=== PATIENT | female | born 1975 | race Two or more races ===

== ENCOUNTER → 2016-10-15 | Outpatient (CLI) | payer OTHER ==
[~2016-10-15] VITALS: Ht 162.6 cm; Wt 82.1 kg
[~2016-10-15] MED LIST: LIDOCAINE 1% / SOD BICARB 8.4% 20 ML VIAL. IJ ONE; LIDOCAINE 2%/EPI 1:100,000 20 ML VIAL. IJ ONE
[2016-10-15 09:18] VITALS: BP 147/90
--- NOTE | 2016-10-16 15:26 | PATHOLOGY ---
PATHOLOGY REPORT * * * * * * * * FINAL DIAGNOSIS: Breast "right breast biopsy": - Infiltrating ductal carcinoma measuring 0.5 cm in greatest dimension. 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 The largest area measures approximately 1.0 cm in greatest dimension. - See comment. Specimen type: biopsy Tumor site: right breast Tumor quantitation: 0.5cm Histologic type: infiltrating ductal carcinoma Histologic grade: 2 Tubules, nuclei and mitoses: 3,2,1 LVSI: none Microcalcifications: present Markers: ordered Block: A1 COMMENT: This case is also reviewed by Dr. Lukasz Mckoy. Emelina Brunner at Dr. Mayo Eagle office was informed of the diagnosis on 10/16/2016 at 3pm. Predictive breast markers will be ordered on block A1 and when those are available, an additional report will follow. (SHARON:himanshu; d/t: 10/16/2016) REPORT ELECTRONICALLY SIGNED BY: Cesar Trinidad M.D. DATE/TIME: 10/16/2016 15:25 * * * * * * * * GROSS PATHOLOGY: Received in formalin labeled "Daren Mckeon, right breast," are multiple needle cores of yellow-ruiz fibrofatty tissue measuring 1.2 x 1.0 x 0.5 cm in aggregate dimensions. Also received is a plastic cassette containing multiple cores of yellow-ruiz fibrofatty tissue measuring 2.5 x 2.2 x 0.6 cm in aggregate dimensions. The tissue in the cassette is transferred to cassettes A1 and A2, and the remaining tissue is submitted in its entirety in cassette A3. The cold ischemic time is 14 minutes. The total formalin fixation time is 13 hours and 21 minutes. ([facility]; 10/15/16) INITIAL CPT CODE(S): A; 03936, 56547(4) Professional services performed by [facility] at [address] [address] Technical services performed by [facility] at [address] [place] [address], [address], [place] [address]. SPECIMEN(S) RECEIVED: A.Right breast biopsy CLINICAL HISTORY: Right breast calcifications/mass PATIENT: DAREN MCKEON Brady /AGE: 1103/17/1975 (Age: 41) PATIENT #: [id number] ALT CASE #: SPECIMEN COLLECTION DATE: 10/15/2016 SPECIMEN RECEIVED DATE: 10/15/2016 [facility] - [address] [place] [address] - PHONE: [phone] * * * END OF REPORT * * *
--- NOTE | 2016-10-17 09:25 | RAD ---
Stereotactic right breast biopsy, 10/15/2016: History: Microcalcifications The previous study demonstrated suspicious microcalcifications in the upper outer quadrant of the right breast. Under local anesthesia, aseptic conditions and stereotactic guidance the ESTmob biopsy instrument was passed into this area via a superior approach. We targeted the anterior aspect of this elongated grouping of microcalcifications. Multiple 9 gauge core samples were obtained. Specimen radiography demonstrated numerous targeted microcalcifications within the specimens. A biopsy marker was then deposited at the biopsy site. The biopsy instrument was removed and hemostasis obtained. Two-view postprocedural digital mammograms were then obtained on a separate mammographic unit, to document position of the biopsy marker. There are numerous residual microcalcifications at the biopsy site and extending posteriorly a distance of at least 3 cm. The patient tolerated the procedure well and left the department in good condition. The subsequent pathology report indicated the presence of infiltrating ductal carcinoma. This is considered to be a concordant finding. Note: The findings were given to personnel in Dr. Eagle's office at 9:22 AM on 10/17/2016.
== END | disposition home or self-care (01) ==
LOC: MAMMO 08:23
PROVIDERS: ATTEND Surgery
DX: R92.8 Other abnormal and inconclusive findings on diagnostic imaging of breast (principal); N63 Unspecified lump in breast
CPT/HCPCS: 19085; 77022; C1713; G0206; J3490; 88305; 88361; 77065

== ENCOUNTER 2016-11-17 07:08 | Observation (INO) | payer OTHER ==
[~2016-11-17] VITALS: Ht 162.6 cm; Wt 82.1 kg
[2016-11-17] VITALS (10 sets, daily range): BP systolic 105–134; BP diastolic 64–79
[2016-11-17] MEDS: IV DEXTROSE 5 %-0.45 % NACL 1,000 ML IV SCH ×2 (01:45→14:34)
[~2016-11-17 07:08] MED LIST changes: +ACET500T33 PO; +HYDROmorphone 2 MG/ML VIAL IV PRN; +IBUP-1227 PO; +IV RINGERS,LACTATED 1000ML 1,000 ML IV SCH; -LIDOCAINE 1% / SOD BICARB 8.4% 20 ML VIAL. IJ ONE; +LIDOCAINE 1% 1 ML SYRINGE. ID PRN; -LIDOCAINE 2%/EPI 1:100,000 20 ML VIAL. IJ ONE; +ONDANSETRON PF 4 MG/2 ML VIAL. IV PRN; +PROCHLORPERAZINE 10 MG/2 ML VIAL. IV PRN; +fentaNYL PF VIAL 100 MCG/2 ML VIAL IV PRN
[2016-11-17] MEDS ORDERED: ISOSULFAN BLUE 50 MG/5 ML VIAL. SQ ONE (08:07)
[2016-11-17] MEDS ORDERED: PROPOFOL 20 ML IV ONE ×2 (08:15→10:47)
[2016-11-17] MEDS ORDERED: DEXAMETHASONE SOD PHOS 20 MG/5 ML VIAL. ONE (08:15)
[2016-11-17] MEDS ORDERED: LIDOCAINE 1% / SOD BICARB 8.4% 20 ML VIAL. IJ ONE (08:15)
[2016-11-17] MEDS ORDERED: ONDANSETRON PF 4 MG/2 ML VIAL. ONE (08:15)
[2016-11-17] MEDS ORDERED: LIDOCAINE 2% PF Vial for OR 5 ML VIAL. ONE (08:15)
[2016-11-17] MEDS ORDERED: fentaNYL PF VIAL 100 MCG/2 ML VIAL ONE ×4 (08:20→12:11)
[2016-11-17] MEDS ORDERED: MIDAZOLAM HCL/PF 2 MG/2 ML VIAL. ONE (09:32)
[2016-11-17] MEDS ORDERED: FAMOTIDINE 20 MG/2 ML VIAL ONE (09:53)
[2016-11-17] MEDS ORDERED: SEVOFLURANE > 120 MINUTES. IH ONE (10:04)
--- NOTE | 2016-11-17 11:23 | RAD ---
Radionuclide right breast sentinel node localization, 11/17/2016: History: Right breast cancer A total of 0.75 cc of filtered technetium 99m sulfur colloid mixed with 0.5 cc of 1% percent buffered lidocaine was injected subdermally in the right periareolar region in 4 divided doses. No imaging was performed as requested. The patient was sent to the operating room in good condition.
--- NOTE | 2016-11-17 12:19 | PDOC4 ---
Operative Note Operative Note Operative Note: Preoperative Diagnosis: Right breast cancer Postoperative Diagnosis: Same Procedure: Right simple mastectomy, sentinel lymph node biopsy Surgeon: Fco Whale Trainer: Lucille PATRICK Anesthesia: Gen. EBL: 50 mL Specimen: Right axillary sentinel lymph node 1, 2 to pathology, right breast stitch at 12:00 to pathology Drains: 19 Serbian round Cameron drain to chest wall Complications: None Indication: The patient is a 41-year-old female who was referred following mammographic abnormalities of the right breast. A core needle biopsy was performed that showed infiltrating ductal carcinoma. In addition there were multiple foci of in situ carcinoma. Based on her pathologic and radiographic findings we recommended a simple mastectomy and plan to incorporate a sentinel lymph node biopsy. The details and risks of surgery were discussed with the patient. The risks include bleeding, infection, wound healing problems, scar tissue, pain, potential need for additional surgery or procedure. She understands and would like to proceed. Description: The patient was taken to the operating room following injection of technetium sulfur colloid in radiology. Placed supine on the operating table. Gen. anesthesia was performed. The right breast and axilla were prepped with ChloraPrep and draped in a standard surgical manner. 5 mL of Lymphazurin were injected deep to the nipple areolar complex. Several minutes were allowed to elapse. An elliptical ink marking was made around the nipple areolar complex across the chest for the planned mastectomy incision. The skin of the lateral superior portion of the elliptical marking near the axilla was then opened with a 10 blade scalpel. Cautery dissection was carried down into the axillary tissue. There was a fairly superficial lymph node identified that did show some blue staining and an adjacent blue channel associated with it. This did not show increased nuclear uptake. This lymph node was harvested and sent to pathology as sentinel lymph node # 1. In the deeper axillary tissues there was an area of increased nuclear uptake. This was mobilized and showed complete blue staining. This lymph node was harvested and sent to pathology labeled sentinel lymph node #2. Further inspection showed no other areas of increased nuclear uptake or blue staining lymph nodes. In addition there was no palpable adenopathy. Frozen section of the first lymph node showed a foci of isolated tumor cells but no other distinct metastasis. The second lymph node was negative. Given only isolated tumor cells we did not proceed with any further axillary dissection. A 10 blade scalpel was then used to make an elliptical incision at the site of the prior right chest marking. Cautery dissection was used to develop the flaps. The superior skin flap was developed first freeing the skin from the deeper breast tissue. This was carried superiorly to the level just below the clavicle. In a similar manner the inferior flap was developed as well the skin from the breast tissue. This was carried to the upper border of the torso and included the inframammary fold. In a medial to lateral fashion the breast was taken off of the chest wall. Multiple small blood vessels were encountered and readily controlled with cautery. Care was taken to ensure inclusion of the axillary tail of breast tissue. The entire breast was then fully excised and a stitch was used to judith the 12 o'clock position. This was then sent to pathology for evaluation. Hemostasis was readily achieved with cautery. No other gross abnormalities were seen. A 19 Serbian round Cameron drain was left in the chest wall which exited inferiorly. This was secured to the skin with 2-0 silk. The subcutaneous tissue was closed with interrupted 3-0 Vicryl. The skin was then approximated with a running 4-0 Monocryl suture. A sterile OpSite dressing was then applied. The patient tolerated the procedure well and was sent to the recovery room in stable condition. At the end of the case all counts were correct. CHELSI ALDANA MD Nov 17, 2016 12:19
[2016-11-17] MEDS ORDERED: 0.9 % SODIUM CHLORIDE 10 ML DISP.SYRIN. IV PRN (12:30)
[2016-11-17] MEDS ORDERED: ONDANSETRON PF 4 MG/2 ML VIAL. IV PRN (12:30)
[2016-11-17] MEDS ORDERED: PROCHLORPERAZINE 10 MG/2 ML VIAL. ONE (12:30)
[2016-11-17] MEDS ORDERED: oxyCODONE/APAP 5/325 1 TAB TABLET PO PRN (12:30)
[2016-11-17] MEDS ORDERED: PROCHLORPERAZINE 10 MG/2 ML VIAL. IV PRN (12:30)
[2016-11-17] MEDS ORDERED: MORPHINE SULFATE 4 MG/ML DISP.SYRIN. ONE (12:42)
[2016-11-17] MEDS: fentaNYL PF VIAL 100 MCG/2 ML VIAL IV PRN ×2 (12:46→13:00)
[2016-11-17] MEDS: MORPHINE SULFATE 2 MG/ML DISP.SYRIN. IV PRN ×5 (13:00→20:19)
[2016-11-17] MEDS: HYDROmorphone 2 MG/ML VIAL IV PRN (23:41)
[2016-11-18 03:00] VITALS: BP 96/56
[2016-11-18] MEDS: HYDROmorphone 2 MG/ML VIAL IV PRN ×3 (03:12→14:13)
[2016-11-18 07:21] VITALS: BP 113/62
[2016-11-18] MEDS: IV DEXTROSE 5 %-0.45 % NACL 1,000 ML IV SCH (07:39)
[2016-11-18 10:45] VITALS: BP 115/76
[2016-11-18] MEDS: oxyCODONE/APAP 5/325 1 TAB TABLET PO PRN ×2 (10:49→17:04)
--- NOTE | 2016-11-18 12:58 | PDOC ---
JACKSON LAMA APRN 11/18/16 1258: SURGICAL PROGRESS NOTE Subjective emesis this AM up to chair for first time this afternoon reports moderate pain to incision site Vital Signs Vital Signs Date Time Temp Pulse Resp B/P (MAP) Pulse Ox O2 Delivery O2 Flow Rate FiO2 11/18/16 12:30 Room Air 11/18/16 10:45 97.7 75 20 115/76 (89) 97 97.7 11/18/16 08:05 1.0 I&O Intake and Output 11/18/16 07:00 Intake Total 1750 ml Output Total 650 ml Balance 1100 ml Intake IV Total 1750 ml Output Urine Total 600 ml Estimated Blood Loss 50 ml # Voids 3 General: Alert, Oriented X3, Cooperative, No acute distress Skin: Other (right breast incision dressing dry, cherelle without output) Assessment/Plan s/p mastectomy pain management, ambulate, dc once tolerating diet without emesis Problems: CHELSI ALDANA MD 11/18/16 1627: SURGICAL PROGRESS NOTE Assessment/Plan Agree with above, plan discharge Problems: JACKSON LAMA APRN Nov 18, 2016 12:58 CHELSI ALDANA MD Nov 18, 2016 16:29
[2016-11-18 16:13] VITALS: BP 120/66
--- NOTE | 2016-11-18 17:12 | DISCH ---
DISCHARGE INSTRUCTIONS Condition on Discharge Condition on Discharge: Stable Activity After Discharge Activity Instructions for Disc: Other, see below (no strenous activity) Diet after Discharge Diet after Discharge: Regular Wound Incision Care Wound/Incision Care: Other, see below (record SANDY output BID, keep dressings clean and dry) Follow-Up Follow up with: Dr Aldana in 1 week in the office, call for appt [phone] CHELSI ALDANA MD Nov 18, 2016 17:12
[2016-11-18] MEDS ORDERED: OXYC-323 PO (17:21)
--- NOTE | 2016-11-20 13:13 | PDOC3 ---
Discharge Summary* Date of Admission: Nov 17, 2016 Date of Discharge: Nov 18, 2016 Admitting Diagnosis right breast cancer Problems: Final Diagnosis right breast cancer CONSULTS NONE Procedures Right simple mastectomy, sentinel lymph node biopsy Brief Hospital Course Ms. Rios is a 41 old female who presented with breast cancer and underwent the above procedure. Postoperatively having incisional pain. She was tolerating a regular diet. She was instructed on drain care and discharged home Disposition/Orders: D/C to Home CONDITION AT DISCHARGE: Stable Diet: Regular Scheduled PRN Ibuprofen (Ibuprofen), 400 MG PO PRN PRN for HEADACHE, (Reported) Oxycodone/Apap 5-325 (Percocet 5-325 Mg Tablet), 1-2 TAB PO Q4HRS PRN for PAIN, (Reported) Discontinued Medications Acetaminophen (Tylenol Extra Strength), 1,000 MG PO PRN PRN for HEADACHE, ( Reported) FOLLOW UP APPOINTMENT: 1 week Time Spent Total time spent with patient [] minutes for coordination of care, counseling, and education. JACKSON LAMA APRN Nov 20, 2016 13:13
--- NOTE | 2016-11-21 18:01 | PATHOLOGY ---
PATHOLOGY REPORT * * * * * * * * FINAL DIAGNOSIS: A. Lymph node, right sentinel lymph node #1: - Clusters of isolated tumor cells identified. B. Lymph node, right sentinel lymph node #2: - Rare isolated tumor cell identified. C. Right breast mastectomy: - INVASIVE DUCTAL CARCINOMA WITH LOBULAR FEATURES, GRADE II, MULTIFOCAL, ARISING WITHIN A BACKGROUND OF EXTENSIVE DUCTAL CARCINOMA IN SITU, SOLID AND CRIBRIFORM TYPE WITH FOCAL COMEDO TYPE NECROSIS, INTERMEDIATE GRADE. SEE COMMENT AND SYNOPTIC REPORT. - Previous biopsy site changes with biopsy marker. - Two lymph nodes of outer breast negative for tumor (0/2). - Closest inked deep margin of resection negative for tumor. - No lymphovascular tumor invasion identified. - Nipple negative for tumor. SYNOPTIC CANCER STAGING REPORT CLINICAL Clinical History: Other: Calcifications/mass. Radiologic Finding: Mass or architectural distortion Calcifications SPECIMEN Procedure: Total mastectomy (including nipple and skin) Lymph Node Sampling: Clementon lymph node(s) Lymph nodes present within the breast specimen (i.e., intramammary lymph nodes) Specimen Laterality: Right TUMOR Primary Tumor Site: Invasive Carcinoma: Not specified Presence of Invasive Carcinoma: Histologic Type: Invasive mammary carcinoma with extensive intraductal component Histologic Grade (Houston Histologic Score): Glandular (Acinar) / Tubular Differentiation: Score 3 (< 10% of tumor area forming glandular / tubular structures) Nuclear Pleomorphism: Score 2 (Cells larger than normal with open vesicular nuclei, visible nucleoli, and moderate variability in both size and shape) Mitotic Rate: Score 1 (<=3 mitoses per mm2) Overall Grade: Grade 2 (scores of 6 or 7) Ductal Carcinoma In Situ (DCIS): DCIS is present Positive for EIC Number of Blocks with DCIS: 4 Number of Blocks Examined: 10 Architectural Patterns: Cribriform Solid Nuclear Grade (see Table 2 in CAP Protocol): Grade II (intermediate) Necrosis: Present, central (expansive "comedo" necrosis) Lobular Carcinoma In Situ (LCIS): Not identified Tumor Size: Size of Largest Invasive Carcinoma: Greatest dimension of largest focus of invasion > 1 mm Greatest Dimension (mm): 10 Tumor Focality: Multiple foci of invasive carcinoma Sizes of Individual Foci: 10mm. Accessory Tumor Findings Lymph-Vascular Invasion: Not identified Dermal Lymph-Vascular Invasion: Not identified Microcalcifications: Present in DCIS Treatment Effect: Response to Presurgical (Neoadjuvant) Therapy: No known presurgical therapy MARGINS Invasive Carcinoma: Margins uninvolved by invasive carcinoma Distance from Closest Margin: Distance is > 10 mm Closest Uninvolved Margin: Posterior Ductal Carcinoma In Situ (DCIS): Margins uninvolved by DCIS (DCIS present in specimen) Distance of DCIS from Closest Margin (mm): Distance is > 10 mm Closest Uninvolved Margin(s): Posterior LYMPH NODES Regional Lymph Nodes: Clementon lymph node biopsy performed Number of Clementon Nodes Examined: Specify number: 2 Method of Evaluation of Clementon Lymph Node(s): H-E, multiple levels Immunohistochemistry Number of Lymph Node(s) Examined (sentinel and nonsentinel): Specify number: 4 Lymph Node Involvement: Number of Lymph Nodes with Macrometastases (> 2 mm): Specify number: 0 Number of Lymph Nodes with Micrometastases (> 0.2 mm to 2 mm and / or > 200 cells): Specify number: 0 Number of Lymph Nodes with Isolated Tumor Cells (<= 0.2 mm and <= 200 cells): Specify number: 2 Extranodal Extension: Not identified STAGE (PTNM) TNM Descriptors: m (multiple foci of invasive carcinoma) Primary Tumor (Invasive Carcinoma) (pT): pT1b: Tumor > 5 mm but <= 10 mm in greatest dimension Category (pN): pN0 (i+): Malignant cells in regional lymph node(s) no greater than 0.2 mm and no more than 200 cells (detected by H-E or IHC including ITC) ADDITIONAL FINDINGS Additional Pathologic Findings: See diagnoses. COMMENT: Sections of the right mastectomy reveal an invasive ductal carcinoma with lobular features which is arising within a background of extensive intermediate grade ductal carcinoma in situ. In fact, there appear to be several foci of invasive carcinoma arising within the extensive ductal carcinoma in situ. The largest of these foci measure up to approximately 1.0 cm in greatest dimension. There is no lymphovascular tumor invasion. There are two small lymph nodes identified within the outer breast which are negative for tumor. There are also two sentinel lymph nodes submitted for examination. A single cluster of isolated tumor cells was identified at frozen section within a capsular lymphatic of right sentinel lymph node #1. Immunoperoxidase stains for AE1/AE3 are obtained on both sentinel lymph nodes and yield the following results: AE1/AE3 (A1, right sentinel lymph node #1): several clusters of isolated tumor cells identified AE1/AE3 (B1, right sentinel lymph node #2): rare isolated tumor cell identified (JPM:mgr; 11/20/2016) Special Stains Performed: Immunoperoxidase stains for AE1/AE3 (A1, B1) REPORT ELECTRONICALLY SIGNED BY: Roberto Palomares M.D. DATE/TIME: 11/21/2016 18:00 * * * * * * * * GROSS PATHOLOGY: A. The specimen is received fresh for intraoperative consultation and is designated, "sentinel lymph node #1, right". This consists of a segment of yellow fatty-appearing tissue measuring up to 2.6 cm in greatest dimension. Sectioning reveals an eccentrically located yellow-quezada lymph node showing focal bluish discoloration, measuring 0.8 cm in greatest dimension. This shows no gross evidence of tumor replacement. This is submitted for frozen section as FSA1. The tissue remaining from frozen section is submitted for permanent sections as A1. B. The specimen is received fresh for intraoperative consultation and is designated, "sentinel lymph node #2". This consists of a segment of yellow-red fatty-appearing tissue measuring up to 3.0 cm in length and 1.5 cm in width. Sectioning reveals an eccentrically located yellow lymph node showing bluish discoloration, measuring up to approximately 1.2 cm in greatest dimension. This is submitted for frozen section as FSB1. The tissue remaining from frozen section is submitted for permanent sections as B1. (JPM:yumi; 11/17/2016) C. The specimen is received in formalin labeled "Loyda Rios, right breast, stitch at 12:00". Received is a 1523 g mastectomy specimen oriented with a suture designating the 12:00 margin. The specimen measures 22.2 cm from superior to inferior, 21.8 cm from medial to lateral, and 8.0 cm from anterior to posterior. The anterior aspect of the specimen displays an attached ellipse of skin measuring 19.4 x 7.4 cm, with a centrally located everted nipple and areolar complex measuring 1.5 x 1.4 cm and 3.9 x 3.3 cm respectively. The epidermal surface also displays several incidental pale quezada to light quezada nevi ranging in size from 0.2 x 0.2 to 0.3 x 0.2 cm. The specimen is inked as follows: superior/anterior-blue, inferior/anterior-green, posterior-black. Sectioning reveals a previous biopsy site with a metallic marker present, measuring 0.3 x 0.3 x 0.3 cm, which is located 1.0 cm immediately posterior to the skin, and 3.9 cm from the closest margin (superior/anterior). The previous biopsy site is located in the upper outer quadrant. Adjacent to the previous biopsy site, there is a focus of white-quezada fibrous tissue displaying comedo-type cut surfaces, measuring 3.5 x 3.0 x 3.0 cm, which is 2.7 cm from the closest margin (posterior). Near the posterior margin, 2 possible lymph nodes are identified measuring 0.3 cm each. The remainder the specimen is comprised of yellow-quezada fibrofatty breast tissue. The specimen is submitted representatively as follows: C1 perpendicular section through nipple C2-C3 entire previous biopsy site C4-C5 passenger relations representative sections of focus of fibrous tissue displaying comedo-type cut surfaces C6 possible lymph nodes along posterior margin C7 upper outer quadrant C8 lower outer quadrant C9 lower inner quadrant C10 upper inner quadrant. ([facility]; 11/18/2016) FROZEN SECTION DIAGNOSIS: (Brendon Palomares M.D.) FSA1. Right sentinel lymph node #1: - Single small cluster of tumor cells identified within capsular lymphatic. The results are reported to Dr. Eagle in the operating room. FSB1. Right sentinel lymph node #2: - Negative for tumor. The results are reported to Dr. Eagle in the operating room. (JPM:yumi; 11/17/2016) Testing performed by [facility] at [address] [place] [address] INITIAL CPT CODE(S): A; 74177, 87754, 26930 B; 55441, 71100, 85966, 62164 Professional services performed by [facility] [place] [address] Technical services performed by [facility] at [address] [place] [address], [address], [place] [address]. SPECIMEN(S) RECEIVED: A.Clementon lymph node #1, right B.Clementon lymph node #2, right C.Right breast, stitch at 12 o'clock CLINICAL HISTORY: Right breast malignant neoplasm PATIENT: LOYDA RIOS /AGE: 1103/17/1975 (Age: 41) PATIENT #: [id number] ALT CASE #: SPECIMEN COLLECTION DATE: 11/17/2016 SPECIMEN RECEIVED DATE: 11/17/2016 [facility] - [address] [place] [address] - PHONE: [phone] * * * END OF REPORT * * *
== END 2016-11-18 18:10 | disposition home or self-care (01) ==
LOC: SURG 07:08 → 4 NORTH 12:57
PROVIDERS: ADMIT Surgery; ATTEND Surgery
DX: C50.911 Malignant neoplasm of unspecified site of right female breast (principal)
CPT/HCPCS: 19303; 38525; 38792; 96374; 96375; 96376; A9541; C1769; G0378; G0379; J0690; J0780; J1100; J1170; J2001; J2250; J2270; J2405; J2704; J3010; J7120; Q9968; S0028

== ENCOUNTER → 2016-12-09 | Outpatient (CLI) | payer OTHER ==
[2016-11-18 16:13] VITALS: BP 120/66
[~2016-12-09] MED LIST changes: -HYDROmorphone 2 MG/ML VIAL IV PRN; +IOHEXOL 240 MG/ML 50ML VIAL. PO ONE; +IOHEXOL 300 MG/ML 75 ML VIAL IV ONE; -IV RINGERS,LACTATED 1000ML 1,000 ML IV SCH; -LIDOCAINE 1% 1 ML SYRINGE. ID PRN; -ONDANSETRON PF 4 MG/2 ML VIAL. IV PRN; +OXYC-323 PO; -PROCHLORPERAZINE 10 MG/2 ML VIAL. IV PRN; -fentaNYL PF VIAL 100 MCG/2 ML VIAL IV PRN
--- NOTE | 2016-12-09 12:23 | RAD ---
CT chest, abdomen and pelvis with contrast 12/09/2016 at 1029 hours Indication: History of breast cancer status post right mastectomy. Comparison: None available Technique: Multiple axial CT images of the chest, abdomen and pelvis were obtained after the administration of 75 mL's Omnipaque 300. Coronal and sagittal reformats are provided. Findings: Chest: Thyroid gland is normal. There are no axillary, mediastinal or hilar lymph nodes that are pathologically enlarged. Right mastectomy changes are present. Small foci subcutaneous gas are noted, likely postsurgical. There is a simple appearing fluid collection lateral and inferior to the pectoralis major, suggestive of a postoperative seroma measuring approximately 7.0 cm x 1.6 cm x 5.5 cm (AP by transverse by craniocaudal). Heart size is within normal limits. Thoracic aorta is normal in course and caliber. No pericardial effusion. There are no suspicious pulmonary nodules. No pulmonary infiltrates. Minimal subsegmental atelectasis is identified at the left lung base. No pleural effusions, probably vascular congestion or pneumothorax. Abdomen/pelvis: Hypoattenuation of the hepatic parenchyma suggestive of diffuse hepatic steatosis. No suspicious arterially enhancing hepatic lesions are identified. No hypoenhancing lesions are noted. Spleen is normal in appearance. Bilateral adrenal glands are normal. Pancreas is normal. Gallbladder is present without adjacent plantar changes. No intrahepatic or extra hepatic biliary ductal dilatation. The abdominal aorta is normal in course and caliber. There are no pathologically enlarged lymph nodes in the abdomen or pelvis. There is no free intraperitoneal air. No free fluid within the abdomen or pelvis. The kidneys enhance symmetrically. No suspicious renal masses are identified. There is no hydronephrosis. No renal calculi are identified. Small and large bowel are normal in caliber. A normal appendix is visualized. No pericolonic inflammatory changes are identified. No suspicious adnexal masses are identified. Urinary bladder is normal in appearance given the degree of distention. No suspicious osseous lesions are identified. Impression: 1. Right mastectomy changes are identified with adjacent simple appearing postoperative fluid collection favored to represent a seroma. No pathologically enlarged lymph nodes are identified in the axillary, mediastinal or hilar regions. 2. No evidence for suri or parenchymal metastasis involving the abdomen and pelvis. Specifically, no suspicious hepatic lesions are identified. 3. No suspicious osseous lesions are identified. PQRS Compliance Statement: One or more of the following individualized dose reduction techniques were utilized for this examination: 1. Automated exposure control 2. Adjustment of the mA and/or kV according to patient size 3. Use of iterative reconstruction technique
--- NOTE | 2016-12-09 13:34 | RAD ---
Radionuclide bone scan, 12/09/2016: History: Staging breast cancer Whole body imaging was performed following IV injection of 26.6 mCi of technetium 99m MDP. No previous bone scan is available at this time for comparison purposes. There is mildly increased activity at both shoulders and in both sternoclavicular regions in a symmetric pattern. This is compatible with arthritis. Activity of the radionuclide about the skeleton and major joints is otherwise unremarkable. Mildly increased activity involving the right anterior chest wall is most likely on a postsurgical basis. IMPRESSION: No bone scan findings to suggest osseous metastatic disease.
== END | disposition home or self-care (01) ==
LOC: NM 09:02
PROVIDERS: ATTEND Internal Medicine Medical Oncology
DX: C50.411 Malignant neoplasm of upper-outer quadrant of right female breast (principal); Z85.3 Personal history of malignant neoplasm of breast; Z90.11 Acquired absence of right breast and nipple
CPT/HCPCS: 71260; 74177; 78306; 96374; A9503; Q9966; Q9967

== ENCOUNTER 2017-04-16 08:14 | Day surgery (SDC) | payer OTHER ==
[~2017-04-16 08:14] MED LIST changes: +HYDROmorphone 2 MG/ML VIAL IV PRN; -IOHEXOL 240 MG/ML 50ML VIAL. PO ONE; -IOHEXOL 300 MG/ML 75 ML VIAL IV ONE; +IV RINGERS,LACTATED 1000ML 1,000 ML IV SCH; +LIDOCAINE 1% PF 2 ML VIAL. ID PRN; +MORPHINE SULFATE 2 MG/ML DISP.SYRIN. IV PRN; +ONDANSETRON PF 4 MG/2 ML VIAL. IV PRN; +PROCHLORPERAZINE 10 MG/2 ML VIAL. IV PRN; +TAMO20TA PO; +fentaNYL PF VIAL 100 MCG/2 ML VIAL IV PRN
[2017-04-16] MEDS ORDERED: fentaNYL PF VIAL 100 MCG/2 ML VIAL ONE (08:25)
[2017-04-16] MEDS ORDERED: PROPOFOL 20 ML IV ONE (08:25)
[2017-04-16] MEDS ORDERED: ROCURONIUM 50 MG/5 ML VIAL. ONE (08:25)
[2017-04-16] MEDS ORDERED: LIDOCAINE 2% PF Vial for OR 5 ML VIAL. ONE (08:25)
[2017-04-16 09:08] LABS: BASO % 1 % (0-3); EOS % 1 % (0-3); HEMATOCRIT 42.9 % (36.0-47.0); HEMOGLOBIN 14.1 g/dL (12.0-15.5); LYMPH % 40 % (24-48); MEAN CORPUSCULAR HEMOGLOBIN 31 pg (25-35); MEAN CORPUSCULAR HGB CONC 33 g/dL (31-37); MEAN CORPUSCULAR VOLUME 93 fL (79-100); MONO % 7 % (0-9); NEUT % 51 % (31-73); PLATELET COUNT 179 x10^3/uL (140-400); RED BLOOD COUNT 4.62 x10^6/uL (3.50-5.40); WHITE BLOOD COUNT 5.1 x10^3/uL (4.0-11.0)
[2017-04-16] MEDS ORDERED: BUPIVAC MPF-EPI 0.5%-1:200000 30 ML VIAL. ONE (09:51)
[2017-04-16] MEDS ORDERED: DEXAMETHASONE SOD PHOS 20 MG/5 ML VIAL. ONE (10:38)
[2017-04-16] MEDS ORDERED: DESFLURANE 31 TO 60 MINUTES IH ONE (10:38)
[2017-04-16] MEDS ORDERED: ONDANSETRON PF 4 MG/2 ML VIAL. ONE (10:51)
[2017-04-16] MEDS ORDERED: GLYCOPYRROLATE 1 MG/5 ML VIAL. ONE (10:51)
[2017-04-16] MEDS ORDERED: NEOSTIGMINE 10 MG/10 ML VIAL. ONE (10:51)
[2017-04-16] MEDS ORDERED: FAMOTIDINE 20 MG/2 ML VIAL ONE (11:05)
--- NOTE | 2017-04-16 11:31 | PDOC ---
BRIEF OPERATIVE NOTE Date: Apr 16, 2017 Pre-Op Diagnosis breast cancer Post-Op Diagnosis same Procedure Performed bilateral oophrectomy Surgeon Kasi Property Administrator none Anesthesiologist yes Anesthesia Type: General Blood Loss <10cc IV Fluid see anesthesia report Urine Output 600cc Specimens Obtained bilateral ovaries and fallopian tubes Findings see dictation Complications none Operative Note [id number] see dictation АЛЕКСАНДР SCHMID MD Apr 16, 2017 11:31
[2017-04-16] MEDS: fentaNYL PF VIAL 100 MCG/2 ML VIAL IV PRN ×2 (11:40→12:15)
[2017-04-16] MEDS ORDERED: oxyCODONE/APAP 5/325 1 TAB TABLET PO PRN (12:00)
--- NOTE | 2017-04-16 12:12 | OP ---
DATE OF SURGERY: PREOPERATIVE DIAGNOSES: This is a 42-year-old female who presents today with history of breast cancer and need for ovary removal, so that she can continue her chemotherapy. POSTOPERATIVE DIAGNOSES: This is a 42-year-old female who presents today with history of breast cancer and need for ovary removal, so that she can continue her chemotherapy. PROCEDURE: Bilateral oophorectomy. SURGEON: Leny Schmid MD ANESTHESIA: General. COMPLICATIONS: None. ESTIMATED BLOOD LOSS: Less than 10 mL. URINE OUTPUT: 600 mL. SPECIMENS: Bilateral ovaries and fallopian tubes. COMPLICATIONS: None. DESCRIPTION OF PROCEDURE: After informed consent was obtained, the patient was taken to the operating room and given a smooth induction of anesthesia without complications. Her abdomen, perineum, and vagina were prepped and draped in usual sterile fashion. Her legs have been placed in Srikanth stirrups. A sponge stick was placed in the vagina and her bladder was drained with a red Bullock catheter. I then changed gloves and went above. A 5 mm incision was made at the umbilicus. A bladeless trocar was placed down through this incision. The camera confirmed good trocar placement. Two lateral ports were placed. A small 5 mm port on the right side and a larger 10 mm port on the left for the Endocatch bag. Both ovaries were noted to be free of adhesions. The patient was then placed in Trendelenburg. The right ovary was noted to have a dilated tube, but the ovary itself was actually small and rather atrophic looking. The left ovary had a dilated tube as well, but the left ovary also had some small cysts on it. We were then able to use the LigaSure to cauterize across the infundibulopelvic ligaments bilaterally. We were careful to visualize the ureter on both sides before we did this. We then placed an Endocatch bag down into the pelvis and both ovaries were placed in the bag and removed. At this point, the size 10 port was removed. The fascia was closed with an interrupted suture of 0 Vicryl. The skin was then closed with a subcuticular stitch of 3-0 Vicryl. The 5 mm ports were also removed under direct visualization and those ports were closed with an interrupted suture of 4-0 nylon. All incision sites were infiltrated with anesthetic for patient comfort. The vaginal instruments and the catheter were removed prior to patient transfer. LENY SCHIMD MD DR: SARMAD/saul JOB#: [id number] / [id number]
[2017-04-16 12:40] VITALS: BP 111/49
--- NOTE | 2017-04-18 13:12 | PATHOLOGY ---
PATHOLOGY REPORT * * * * * * * * FINAL DIAGNOSIS: A. Fallopian tube and ovary, right salpingo-oophorectomy: - Cystic hydrosalpinx of fallopian tube. - Few small paratubal cysts and cystic Walthard rests of fallopian tube. - Few small simple serous inclusion cysts of ovary. B. Fallopian tube and ovary, left salpingo-oophorectomy: - Cystic hydrosalpinx of fallopian tube. - Few small paratubal cysts and cystic Walthard rests of fallopian tube. - Hemorrhagic corpus luteum cyst of ovary. - Small cystic follicle and few small simple serous inclusions cysts of ovary. COMMENT: There is no evidence of malignancy. (JPM:db; 04/17/2017) REPORT ELECTRONICALLY SIGNED BY: Roberto Palomares M.D. DATE/TIME: 04/18/2017 12:59 * * * * * * * * GROSS PATHOLOGY: A. Received in formalin labeled "Loyda Rios, right fallopian tube and ovary" and consists of a 2.5 x 2.0 x 0.7 cm ovary and a dilated fimbriated fallopian tube measuring 6.5 cm in length with diameter ranging from 0.5 cm to 2.3 cm. The combined weight is 15 g. The ovary is glistening, quezada, and superficially gyrated. Sectioning reveals glistening quezada-pink parenchyma. The tubal serosa is glistening, pink and the tube is translucent. Sectioning reveals a markedly dilated lumen containing serous clear fluid. The lining of the fallopian tube is pink, smooth, and glistening. The specimen is totally submitted A1-A-10, A1-A3 ovary, A4-A-10 fallopian tube B. Received in formalin labeled "Loyda Rios, left fallopian tube and ovary" and consists of a tubo-ovarian complex weighing 20 g with ovary measuring 4.0 x 2.5 x 2.4 cm and tortuous, dilated fallopian tube measuring 7.9 cm in length with diameter ranging from 0.5 cm to 2.0 cm. The ovarian surfaces are glistening, pink, smooth, and slightly gyrated. Sectioning the ovary reveals a 2.1 cm cystic corpus luteum. The tube is smooth, glistening, and translucent. Sectioning reveals a markedly dilated lumen containing serous clear fluid. The tubal wall is markedly attenuated measuring less than 0.1 cm thick. There are no masses or lesions identified. The specimen is entirely submitted B1-B15, B1 fallopian tube, B2-B9 ovary, B10-B15 fallopian tube (ROSEMARIE; 04/16/2017) INITIAL CPT CODE(S): A; 11398 B; 93177 Professional services performed by [facility] at [facility] [address] [place] [id number] Technical services performed by [facility] at [address] [place] [address], [address] [address]. [place] [address] phone: [phone] fax: [phone] SPECIMEN(S) RECEIVED: A.Right fallopian tube and ovary B.Left fallopian tube and ovary CLINICAL HISTORY: Breast cancer PATIENT: LOYDA RIOS /AGE: 1103/17/1975 (Age: 42) PATIENT #: [id number] ALT CASE #: SPECIMEN COLLECTION DATE: 04/16/2017 SPECIMEN RECEIVED DATE: 04/16/2017 [facility] - [address] [place] [address] - PHONE: [phone] * * * END OF REPORT * * *
== END 2017-04-16 13:19 | disposition home or self-care (01) ==
LOC: SURG 08:14
PROVIDERS: ATTEND Obstetrics & Gynecology
DX: N70.11 Chronic salpingitis (principal); Z85.3 Personal history of malignant neoplasm of breast; Z90.710 Acquired absence of both cervix and uterus; Z72.89 Other problems related to lifestyle
CPT/HCPCS: 36415; 58661; 85025; C1769; C1782; J0780; J1100; J2405; J2704; J2710; J3010; J3490; J7030; J7120; S0028; J2001

== ENCOUNTER → 2018-09-15 | Outpatient (CLI) | payer OTHER ==
[~2018-09-15] MED LIST changes: -HYDROmorphone 2 MG/ML VIAL IV PRN; -IV RINGERS,LACTATED 1000ML 1,000 ML IV SCH; -LIDOCAINE 1% PF 2 ML VIAL. ID PRN; -MORPHINE SULFATE 2 MG/ML DISP.SYRIN. IV PRN; -ONDANSETRON PF 4 MG/2 ML VIAL. IV PRN; -OXYC-323 PO; +OXYC1TAB15 PO; -PROCHLORPERAZINE 10 MG/2 ML VIAL. IV PRN; -fentaNYL PF VIAL 100 MCG/2 ML VIAL IV PRN
--- NOTE | 2018-09-15 13:53 | RAD ---
Nuclear medicine whole body bone scan History: Breast cancer. Comparison: Whole body bone scan and CT chest abdomen and pelvis with contrast December 09, 2016. Technique: Examination performed after intravenous administration of 26 mCi Technetium 99m MDP. Images of the whole body were obtained in the anterior and posterior projections. Findings: Tracer uptake in the spine is relatively homogeneous. Tracer uptake in ribs and pelvic bones is symmetric. Periarticular tracer uptake of the shoulders is probably degenerative. Tracer uptake in the appendicular skeleton is unremarkable. Tracer distribution in the soft tissues appears normal. There is right mastectomy. Impression: No scintigraphic evidence of bone metastasis. Electronically signed by: Cayetano Avalos MD (09/15/2018 1:50 PM) [id number]
== END | disposition home or self-care (01) ==
LOC: NM 09:04
PROVIDERS: ATTEND Family Medicine
DX: Z85.3 Personal history of malignant neoplasm of breast (principal)
CPT/HCPCS: 78306; A9503

== ENCOUNTER 2019-11-04 20:01 | Emergency (ER) | payer OTHER, SELFPAY ==
[~2019-11-04] VITALS: Ht 152.4 cm; Wt 90.0 kg
[~2019-11-04 20:01] MED LIST changes: -IBUP-1227 PO; +IBUP-1670 PO
--- NOTE | 2019-11-04 21:06 | PHYS DOC ---
Past Medical History Smoking Status: Never Smoker General Adult EDM: Chief Complaint: FEVER HPI: HPI: Patient is a 44 year old female past medical history of breast cancer presents with a 4-day history of fatigue diffuse muscle aches decreased diet. Patient denies any chest pain shortness of breath cough of congestion. Patient is currently febrile at 100.2 oxygen saturation 100% on room air. Review of Systems: Review of Systems: Constitutional: Positive fever Eyes: Denies change in visual acuity. [] HENT: Denies nasal congestion or sore throat. [] Respiratory: Denies cough or shortness of breath. [] Cardiovascular: Denies chest pain or edema. [] GI: Denies abdominal pain, nausea, vomiting, bloody stools or diarrhea. [] : Denies dysuria. [] Musculoskeletal: Denies back pain or joint pain. [Positive muscle aches] Integument: Denies rash. [] Neurologic: Denies headache, focal weakness or sensory changes. [Positive generalized weakness] Endocrine: Denies polyuria or polydipsia. [] Lymphatic: Denies swollen glands. [] Psychiatric: Denies depression or anxiety. [] Heart Score: Risk Factors: Risk Factors: DM, Current or recent (<one month) smoker, HTN, HLP, family hist ory of CAD, obesity. Risk Scores: Score 0 - 3: 2.5% MACE over next 6 weeks - Discharge Home Score 4 - 6: 20.3% MACE over next 6 weeks - Admit for Clinical Observation Score 7 - 10: 72.7% MACE over next 6 weeks - Early Invasive Strategies Allergies: Allergies: Allergies Coded Allergies Type Severity Reaction Last Updated Verified No Known Drug Allergies 04/16/17 No Physical Exam: PE: Constitutional: Well developed, well nourished, no acute distress, non-toxic appearance. [] HENT: Normocephalic, atraumatic, bilateral external ears normal, oropharynx moist, no oral exudates, nose normal. [] Eyes: PERRLA, EOMI, conjunctiva normal, no discharge. [] Neck: Normal range of motion, no tenderness, supple, no stridor. [] Cardiovascular:Heart rate regular rhythm, no murmur [] Lungs & Thorax: Bilateral breath sounds clear to auscultation [] Abdomen: Bowel sounds normal, soft, no tenderness, no masses, no pulsatile masses. [] Skin: Warm, dry, no erythema, no rash. [] Back: No tenderness, no CVA tenderness. [] Extremities: No tenderness, no cyanosis, no clubbing, ROM intact, no edema. [] Neurologic: Alert and oriented X 3, normal motor function, normal sensory functi on, no focal deficits noted. [] Psychologic: Affect normal, judgement normal, mood normal. [] EKG: EKG: [] Radiology/Procedures: Radiology/Procedures: [] Impression: Indication: Fever. Comparison: None recently. Findings: The cardiomediastinal silhouette is at the upper limits of normal for size but this may be in part related to AP/portable technique. The appearance is unchanged from the leisure studies professor radiograph on the 12/09/2016 CT study. Symmetric zahida. No confluent infiltrate, pleural effusion or pneumothorax. Increased interstitial markings but nonspecific given technique and patient body habitus. Impression: Somewhat increased interstitial markings bilaterally however this is of uncertain significance given AP technique and a prominent amount of superimposed body wall soft tissue. No confluent infiltrate to suggest a typical pneumonia. Electronically signed by: PHOEBE PAYAN MD (11/04/2019 9:33 PM) [id number] Course & Med Decision Making: Course & Med Decision Making Pertinent Labs and Imaging studies reviewed. (See chart for details) [] Patient was evaluated for chief complaint. Work-up consisted of laboratory analysis and radiologic imaging. Results reviewed and discussed with patient. COVID test pending. If in the patient's symptoms I suspect patient is COVID positive. Patient's son was evaluated earlier in the evening and his symptoms are also highly likely of COVID. Patient's treatment included IV fluids. She received Tylenol for fever. Patient's heart rates been running in the upper 100s. Patient denies any chest pain or shortness of breath. Suspect mild tachycardia is related to fever and viral illness. I did do a d- dimer which was slightly elevated but I do not suspect a PE. Patient will be discharged home with Zithromax. She has advised to self quarantine. Patient given COVID information in Kyrgyz. Annie Disclaimer: Annie Disclaimer: This electronic medical record was generated, in whole or in part, using a voice recognition dictation system. Departure Departure Impression: Primary Impression: Viral infection Additional Impressions: Respiratory infection Person under investigation for COVID-19 Disposition: 09 ADMITTED INPATIENT Condition: STABLE Referrals: JOHN GIL,ASHANTI Nicolas MD (PCP) Patient Instructions: Viral Infections Additional Instructions: Definicin Se le realiz la prueba de deteccin del COVID-19 o se le diagnostic dicha enfermedad. Es jairon infeccin ocasionada por un nuevo tipo de coronavirus. En la mayora de los casos, el COVID-19 provoca sntomas similares a los del resfriado. En algunas personas, puede ocasionar sntomas ms graves, edi problemas respiratorios. No existe un tratamiento para el virus COVID-19. El cuerpo elimina la infeccin con el tiempo. El cuidado personal ayuda a aliviar el malestar. Pasos que debe seguir 1. Cuidados personales Descanse cuando sea necesario. Los hbitos saludables pueden ayudarlo a sentirse mejor. Algunas medidas para lograr cambios incluyen lo siguiente: - Elija alimentos saludables, edi frutas y verduras. Danika abundante cantidad de agua hermila todo el da. - Duerma yanelis por la noche. - Si fuma, intente no hacerlo. [place] ayudar a mejorar la respiracin. - Evite el alcohol. 2. Mantenga sanos a los dems El virus puede contagiarse a otras personas. Cada vez que estornuda o tose, se liberan gotitas. Las gotitas pueden entrar en la boca, la nariz o los ojos de las personas que se encuentran cerca de usted y ocasionar la infeccin. Para reducir las probabilidades de contagiar el virus COVID-19 a otros, tenga en cuenta lo siguiente: - Qudese en casa el tiempo que el mdico se lo indique. Es posible que deba quedarse en casa hasta que la enfermedad desaparezca. Salga nicamente para recibir atencin mdica o en pinky de urgencia. - Evite las reas pblicas, los eventos o el transporte pblico. No reanude las actividades laborales o escolares hasta que el mdico lo autorice. - Llame previamente si necesita asistir a un centro mdico. Avise que es posible que haya contrado COVID-19. [place] ayudar a que le indiquen adonde debe dirigirse. Rita pueden pedirle que use jairon mscara facial cuando vaya al consultorio. Si llama a los s ervicios de asistencia mdica de urgencias, avseles que es posible que haya contrado COVID-19. Mientras est en casa: - Evite el contacto directo con otras personas. Mantngase a jairon distancia aproximada de 2 metros. Si es posible, pasen la mayor parte del tiempo en flores separadas. - Use jairon mscara facial si estar en contacto directo con otras personas, por ejemplo, si compartir jairon habitacin o un vehculo. - Pida a alguien que limpie las superficies comunes de la casa. Limpie picaportes, mesadas y lavamanos con limpiadores domsticos todos los jarvis. - Al toser o estornudar, cbrase con un pauelo de papel. Despus de usarlo, deschelo de inmediato. Si no tiene un pauelo de papel, tosa o estornude en el pliegue del codo. - Lvese las keily con frecuencia. Lvese las keily despus de estornudar o toser. Lvese con agua y jabn hermila, al menos, 20 segundos. Si no dispone de agua y jabn, use un limpiador de keily a base de alcohol. - No cocine para otros. Evite compartir objetos personales, edi tenedores, cucharas o cepillos de dientes. - Mientras est enfermo, evite el contacto directo con las mascotas. No hay indicios de si el virus se transmite a las mascotas. Esta es jairon medida de seguridad que debe tenerse en cuenta hasta que se sepa ms acerca de christine virus. El aislamiento puede ser frustrante. La interaccin social puede ayudar. Mantngase en contacto con amigos y familiares por telfono u otros medios tecnolgicos. Puede interactuar con otras personas en el hogar, alta mantenga jairon distancia ruiz de aproximadamente 2 metros. Seguimiento Las pruebas para confirmar la presencia del COVID-19 pueden demorar algunos jarvis. Es posible que deba seguir los pasos mencionados anteriormente hasta que estn los resultados de las pruebas. Lo llamarn del consultorio mdico para saber si gilmore habido algn cambio en feliz gavin. Tambin le avisarn cuando pueda volver a estar cerca de otras personas. Problemas a los que debe estar atento Comunquese con el mdico si no se recupera segn lo previsto o si tiene problemas edi los siguientes: - Dificultad para respirar - Dolor de pecho - Empeoramiento de los sntomas Si gilma que tiene jairon urgencia, llame a los servicios de asistencia mdica de urgencias de inmediato. As taken from [employer] Scripts Azithromycin (ZITHROMAX) 250 Mg Tablet 1 PKG PO UD, #6 TAB Prov: CARLITO VILLAFANA DO 11/05/19 Justicifation of Admission Dx: Justifications for Admission: Justification of Admission Dx: N/A CARLITO VILLAFANA DO Nov 04, 2019 21:06
[2019-11-04 21:12] LABS: BILIRUBIN,URINE NEGATIVE (NEG); CLARITY,URINE CLEAR; COLOR,URINE YELLOW; NITRITE,URINE NEGATIVE (NEG); PROTEIN,URINE 30 mg/dL (NEG-TRACE); UROBILINOGEN,URINE 0.2 mg/dL (0.2 mg/dL)
[2019-11-04] MEDS ORDERED: ACETAMINOPHEN 325 MG TABLET. PO ONE (21:15)
[2019-11-04 21:28] LABS: AMORPHOUS SEDIMENT,UR PRESENT /HPF; BACTERIA,URINE MODERATE /HPF (0-FEW); SQUAMOUS EPITHELIAL CELL,UR MOD /LPF; WBC,URINE 20-40 /HPF (0-4)
--- NOTE | 2019-11-04 21:36 | RAD ---
Study: CR CHEST AP ONLY Indication: Fever. Comparison: None recently. Findings: The cardiomediastinal silhouette is at the upper limits of normal for size but this may be in part related to AP/portable technique. The appearance is unchanged from the manager solar radiograph on the 12/09/2016 CT study. Symmetric zahida. No confluent infiltrate, pleural effusion or pneumothorax. Increased interstitial markings but nonspecific given technique and patient body habitus. Impression: Somewhat increased interstitial markings bilaterally however this is of uncertain significance given AP technique and a prominent amount of superimposed body wall soft tissue. No confluent infiltrate to suggest a typical pneumonia. Electronically signed by: PHOEBE PAYAN MD (11/04/2019 9:33 PM) [id number]
[2019-11-04] MEDS ORDERED: IV NORMAL SALINE 1000ML BAG 1,000 ML IV ONE (22:00)
[2019-11-04 22:01] LABS: CREATININE 0.7 mg/dL (0.6-1.0); GFR 90.1; POTASSIUM 3.7 mmol/L (3.5-5.1)
[2019-11-04 22:07] LABS: ALBUMIN 3.6 g/dL (3.4-5.0); ALBUMIN/GLOBULIN RATIO 0.8 (1.0-1.7); TOTAL BILIRUBIN 0.3 mg/dL (0.2-1.0); TOTAL PROTEIN 7.9 g/dL (6.4-8.2)
[2019-11-04 22:29] LABS: BASO % 1 % (0-3); EOS % 0 % (0-3); HEMOGLOBIN 12.5 g/dL (12.0-15.5); LYMPH % 26 % (24-48); MEAN CORPUSCULAR HEMOGLOBIN 30 pg (25-35); MEAN CORPUSCULAR HGB CONC 34 g/dL (31-37); MEAN CORPUSCULAR VOLUME 90 fL (79-100); MONO # 0.4 x10^3/uL (0.0-1.1); MONO % 10 % (0-9); NEUT # 2.5 x10^3/uL (1.8-7.7); NEUT % 64 % (31-73); PLATELET COUNT 133 x10^3/uL (140-400); RED BLOOD COUNT 4.11 x10^6/uL (3.50-5.40); RED CELL DISTRIBUTION WIDTH 12.8 % (11.5-14.5); WHITE BLOOD COUNT 3.9 x10^3/uL (4.0-11.0)
[2019-11-05] MEDS ORDERED: AZIT250T PO (01:43)
[2019-11-05 01:50] VITALS: BP 125/75
== END 2019-11-05 01:55 | disposition home or self-care (01) ==
LOC: ER 20:01
DX: U07.1 COVID-19 (principal); J98.8 Other specified respiratory disorders
CPT/HCPCS: 36415; 71045; 80053; 81001; 85025; 85379; 87086; 99285; C9803; J7030; U0003

== ENCOUNTER → 2019-12-20 | Outpatient (CLI) | payer OTHER ==
[~2019-12-20] MED LIST changes: +AZIT250T PO; +LIDOCAINE 2%/EPI 1:100,000 20 ML VIAL. INJ ONE
--- NOTE | 2019-12-21 15:42 | RAD ---
Stereotactic vacuum assisted biopsy left breast with specimen radiograph: Reason for examination: left breast calcifications. The patient was informed and consented for mammographically guided stereotactic biopsy of the calcifications located in the subareolar position of the left breast. An appropriate procedural pause was observed. The patient was placed in sitting upright position under mammographic compression and the targeted calcifications were identified. From the LM approach, the calcifications were targeted and biopsy coordinates were determined. Using sterile technique and following local infiltration of the tissue with lidocaine, the biopsy needle was inserted into the breast to the targeted coordinates. With deep anesthetic present, multiple vacuum assisted biopsies were obtained. Needle was removed. A bharat-shaped biopsy clip was then placed through the needle guide into the biopsy cavity. Imaging of the biopsy site confirmed satisfactory deployment of the biopsy marker. The guide was then removed and pressure was applied to the biopsy site to assure hemostasis. Digital specimen radiograph was obtained and showed calcifications within the tissue specimen. The specimen was then placed into a 10% formalin solution and sent to pathology for histologic analysis. A two-view digital mammograms were obtained which showed the biopsy clip and cavity at the expected position. The patient tolerated the procedure well and there were no apparent complications. The patient left in stable condition and will followup with her referring physician. Impression: Successful left breast are detected biopsy of calcifications in the subareolar breast. Pathology is pending. An addendum will be issued once pathology results become available. Electronically signed by: Isaac Donis MD (12/21/2019 3:39 PM) [id number]
--- NOTE | 2019-12-22 16:07 | PATHOLOGY ---
[facility] Accession Number: [id number] . 01 Material submitted: . breast - LEFT BREAST TISSUE. Modifiers: left . 01 Clinical history: . LEFT BREAST CALCIFICATIONS NEOPLASM OF LEFT BREAST . 02 Diagnosis: Breast "left", stereotactic needle biopsy: - DUCTAL CARCINOMA IN SITU (DCIS). * Comedo, solid, and cribriform types. * Nuclear grade 3 (of 3). * Involving 4 (of 6) needle cores. * Largest tumor focus 3mm - Microcalcifications identified in tumor and non-tumoral tissue. . Tumor markers will be ordered on block A1, and the results will be the subject of an addendum report. . (MLK:yumi; 12/21/2019) S 12/22/2019 1504 Local . 02 Comment: The case is seen in co-review with Dr. Jenn Alcaraz. . Dr. Brown is notified of the results on 12/22/2019 at 3:30. (MLK:yumi; 12/21/2019) . 02 Electronically signed: . Satish Reinoso MD, Pathologist NPI- [id number] . 01 Gross description: . The specimen is received in formalin, labeled "Loyda Rios, left breast". Received within a plastic cassette are multiple cores of fibrofatty tissue measuring 2.8 x 2.8 x 0.4 cm in aggregate dimensions. The specimen is filtered and entirely spitted in cassettes A1 through A3. The cold ischemic time is 5 minutes. The total formalin fixation time is 11 hours and 25 minutes. ([facility]; 12/20/2019) QAC/QAC 12/21/2019 1432 Local . 02 Pathologist provided ICD-10: D05.12 . 02 CPT . 454088 Specimen Comment: A courtesy copy of this report has been sent to [phone], [phone] Specimen Comment: [id number] Specimen Comment: Report sent to / DR BROWN Performed at: 01 [facility] [address] [facility] [address], [place] [id number] MD Vivek Rosado MD Phone: [phone] Performed at: 02 [facility] [address] [place], [place] [id number] MD Roberto Palomares MD Phone: [phone]
== END | disposition home or self-care (01) ==
LOC: MAMMO 08:24
PROVIDERS: ATTEND Internal Medicine Medical Oncology
DX: C50.912 Malignant neoplasm of unspecified site of left female breast (principal); Z72.89 Other problems related to lifestyle; Z79.899 Other long term (current) drug therapy
CPT/HCPCS: 19081; 77065; 88305; 88361; C1713; J3490; 19085; 77022

== ENCOUNTER → 2020-02-03 | Outpatient (CLI) | payer OTHER ==
[~2020-02-03] MED LIST changes: +FEMARA2.5 MG PO; -LIDOCAINE 2%/EPI 1:100,000 20 ML VIAL. INJ ONE; +MULT1CAP15 PO; +vitamin D
== END ==
LOC: LAB 15:19
PROVIDERS: ATTEND Surgery
DX: Z01.812 Encounter for preprocedural laboratory examination (principal); Z20.828 Contact with and (suspected) exposure to other viral communicable diseases; C50.912 Malignant neoplasm of unspecified site of left female breast
CPT/HCPCS: U0003-CS

== ENCOUNTER 2020-02-08 08:30 | Observation (INO) | payer OTHER ==
[~2020-02-08] VITALS: Ht 162.6 cm; Wt 88.0 kg
[2020-02-08] VITALS (9 sets, daily range): BP systolic 116–128; BP diastolic 70–81
[~2020-02-08 08:30] MED LIST changes: +HYDROmorphone 2 MG/ML VIAL IV PRN; +IV RINGERS,LACTATED 1000ML 1,000 ML IV SCH; +LIDOCAINE 1% PF 2 ML VIAL. ID PRN; +MORPHINE SULFATE 2 MG/ML VIAL. IV PRN; +PROCHLORPERAZINE 10 MG/2 ML VIAL. IV PRN; +fentaNYL PF VIAL 100 MCG/2 ML VIAL IV PRN
[2020-02-08] MEDS ORDERED: LIDOCAINE 2% PF 5 ML VIAL. ONE (09:07)
[2020-02-08] MEDS ORDERED: PROPOFOL 10 MG/ML (20ML) VIAL. IV ONE ×2 (09:07→12:44)
[2020-02-08] MEDS ORDERED: DEXAMETHASONE SOD PHOS 4 MG/ML VIAL ONE (09:07)
[2020-02-08] MEDS ORDERED: ONDANSETRON PF 4 MG/2 ML VIAL. ONE (09:07)
[2020-02-08] MEDS ORDERED: fentaNYL PF VIAL 100 MCG/2 ML VIAL ONE ×3 (09:08→13:12)
[2020-02-08] MEDS ORDERED: MIDAZOLAM HCL/PF 2 MG/2 ML VIAL. ONE (09:08)
[2020-02-08] MEDS ORDERED: ISOSULFAN BLUE 1% 50 MG/5 ML VIAL. SQ ONE (10:28)
[2020-02-08] MEDS ORDERED: MORPHINE SULFATE 10 MG/ML VIAL. ONE (12:14)
[2020-02-08] MEDS ORDERED: SEVOFLURANE > 120 MINUTES. IH ONE (12:44)
[2020-02-08] MEDS ORDERED: IV 1/2 NORMAL SALINE 1,000 ML IV SCH (13:12)
[2020-02-08] MEDS ORDERED: IV NORMAL SALINE 1000ML BAG 1,000 ML IV SCH (13:12)
[2020-02-08] MEDS ORDERED: oxyCODONE/APAP 5/325 1 TAB TABLET PO PRN (13:15)
[2020-02-08] MEDS ORDERED: NALOXONE 0.4 MG/ML VIAL. IV PRN (13:15)
[2020-02-08] MEDS ORDERED: 0.9 % SODIUM CHLORIDE 10 ML DISP.SYRIN. IV PRN (13:15)
[2020-02-08] MEDS ORDERED: HYDROmorphone 2 MG/ML VIAL IV PRN (13:15)
[2020-02-08] MEDS ORDERED: ONDANSETRON PF 4 MG/2 ML VIAL. IVP PRN (13:15)
--- NOTE | 2020-02-08 14:31 | PDOC4 ---
Operative Note Operative Note Operative Note: Preoperative Diagnosis: Left breast DCIS Postoperative Diagnosis: Same Procedure: Left simple mastectomy with sentinel lymph node biopsy Surgeon: Fco Supervisor Dry Cell Assembly: Jh BOWDEN Anesthesia: General EBL: 75 mL Specimen: Left axillary sentinel lymph node to pathology, left breast stitch at 12:00 to pathology Drains: 19 Latvian SANDY drain to left chest Complications: None Indication: The patient is a 44-year-old female with a prior history of right breast cancer who was recently diagnosed with DCIS of the left breast. Given her young age and her prior history it was felt she would best be served with a complete mastectomy. We plan to incorporate a sentinel lymph node biopsy. The risks of surgery were discussed which include bleeding, infection, wound healing problems, pain, anesthetic risk, potential need for additional surgery procedure. She understands and would like to proceed. Description: The patient was taken the operating room following injection of technetium sulfur colloid of the left breast. General anesthesia was performed. The left breast and axilla were prepped with ChloraPrep and draped in a standard surgical manner. 5 mL of Lymphazurin were injected deep to the nipple areolar complex. Several minutes were allowed to elapse. An elliptical tracing was made for planned incision across the left breast. The superior lateral aspect of the tracing was opened with a scalpel. Cautery dissection was carried down into the axillary tissues. There was one area of marked increased nuclear uptake which corresponded to an enlarged densely blue staining lymph node. This was harvested and represented sentinel lymph node #1. Further inspection showed no other areas of increased nuclear uptake or blue staining. Frozen section of the lymph node showed no evidence of metastasis. We proceeded with the mastectomy. With a scalpel an incision was made at the prior elliptical marking. The superior skin flap was developed first. With cautery the skin was from the breast parenchyma, and the dissection was carried superiorly to the level just below the clavicle. In a similar manner the inferior skin flap was then developed. The dissection was continued inferiorly to include the inframammary fold. In the medial to lateral fashion the breast was taken off of the chest wall. Multiple small blood vessels were encountered and readily controlled with cautery. The lateral attachments were divided and a few larger vessels were ligated with 2-0 Vicryl. The specimen was fully excised and marked at the 12 o'clock position with a silk stitch. This was sent to pathology. Hemostasis was good. A 19 Latvian SANDY drain was left in the chest wall which exited inferiorly. This was secured to the skin with 2-0 silk. The subcutaneous tissues were approximated with 3-0 Vicryl. The skin was closed with 4-0 Monocryl and a sterile OpSite dressing was applied. The patient tolerated the procedure well and was sent to the recovery room in stable condition. At the end of the case all counts were correct. CHELSI ALDANA MD Feb 08, 2020 14:31
[2020-02-08] MEDS: ONDANSETRON PF 4 MG/2 ML VIAL. IV PRN ×2 (17:06→20:44)
--- NOTE | 2020-02-08 18:25 | RAD ---
Radiopharmaceutical injection left breast for sentinel node mapping: Reason for examination: Left breast cancer. Radiopharmaceutical injection requested for intraoperative sentinel node biopsy guidance. Procedure and Findings: The patient was informed and consented for radiopharmaceutical injection of the left breast. Using sterile technique, 1 mCi of Tc 99m Tilmanocept was administered transdermally in the periareolar region at 10:22 am. . The patient tolerated the procedure well and there were no apparent complications. The patient was returned to surgery in stable condition. Impression: Successful radiopharmaceutical injection of the left breast for intraoperative sentinel node mapping. Electronically signed by: Isaac Donis MD (02/08/2020 6:22 PM) [id number]
[2020-02-09 00:30] VITALS: BP 111/71
[2020-02-09 06:00] VITALS: BP 128/68
[2020-02-09] MEDS: oxyCODONE/APAP 5/325 1 TAB TABLET PO PRN ×3 (06:07→13:46)
[2020-02-09 09:00] VITALS: BP 141/72
--- NOTE | 2020-02-09 10:17 | PDOC ---
SURGICAL PROGRESS NOTE DATE: 02/09/20 TIME: 10:13 Subjective some nausea with pain meds ate some breakfast Vital Signs Vital Signs Date Time Temp Pulse Resp B/P (MAP) Pulse Ox O2 Delivery O2 Flow Rate FiO2 02/09/20 09:00 98.3 84 16 141/72 (95) 96 Room Air 98.3 02/08/20 14:45 2.0 I&O Intake and Output 02/09/20 07:00 Intake Total 1368 ml Output Total 1635 ml Balance -267 ml Intake Oral 260 ml IV Total 800 ml Other 308 ml Output Urine Total 1000 ml Emesis 300 ml Drainage Total 10 ml Estimated Blood Loss 75 ml Other 250 ml General: Alert, Oriented X3, Cooperative Skin: Other (dressing intact, cherelle serosang ) Assessment/Plan home today FU 1 week drain teaching Justicifation of Admission Dx: Justifications for Admission: Justification of Admission Dx: N/A JACKSON LAMA APRN Feb 09, 2020 10:17
[2020-02-09] MEDS ORDERED: ONDA4TAB7 PO (10:19)
[2020-02-09] MEDS ORDERED: OXYC1TAB15 PO (10:19)
--- NOTE | 2020-02-09 10:22 | DISCH ---
DISCHARGE INSTRUCTIONS Condition on Discharge Condition on Discharge: Stable Activity After Discharge Activity Instructions for Disc: Activity as tolerated Bathing Instructions: Shower-keep dressing dry Lifting Instructions after Dis: No heavy lifting, No pulling or pushing, Do not lift >10 pounds Driving Instructions after Dis: Do not drive today Weight Bearing Status after Di: Other, see below Diet after Discharge Diet after Discharge: Regular Wound Incision Care Wound/Incision Care: Ice to area for comfort, Do not change dressing Other wound/incision instructi: keep dressing in place until appt, drain care as instructed Contacting the DRAnthony after DC Call your doctor for: Concerns you may have Follow-Up Follow up with: Dr Eagle 02/15 at 115, call for questions [phone] Treatment/Equipment after DC Adaptive Equipment Issued: None JACKSON LAMA APRN Feb 09, 2020 10:22
[2020-02-09 11:45] VITALS: BP 133/71
[2020-02-09 14:05] VITALS: BP 142/75
--- NOTE | 2020-02-09 14:30 | NUR ---
Discharge and follow up instructions reviewed and given to pt and her . Instructed pt's how to empty SANDY drain and how to record amount. Instructions and chart given to be able to chart output. Pt taken out of the hospital per W/C and helped into her 's vehicle.
--- NOTE | 2020-02-13 09:52 | PDOC3 ---
Discharge Summary Visit Information Date of Admission: Feb 08, 2020 Date of Discharge: Feb 09, 2020 Admitting Diagnosis: left breast cancer Final Diagnosis left breast cancer Brief Hospital Course Allergies Allergies Coded Allergies Type Severity Reaction Last Updated Verified No Known Drug Allergies 02/08/20 No Brief Hospital Course Ms. Rios is a 44 old female Left simple mastectomy with sentinel lymph node biopsy. Postoperatively tolerating diet, ambulating, and pain managed. Drain teaching provided Follow up in clinic Discharge Information Condition at Discharge: Stable Follow Up: Weeks (1) Disposition/Orders: D/C to Home Scheduled Letrozole (Femara) 2.5 Mg Tablet, 2.5 MG PO DAILY for BREAST CANCER, (Reported) Entered as Reported by: RANJIT ERIC on 02/07/20 1238 Last Taken: Unknown Dose on 02/07/20 Last Action: Last Taken Edited on 02/08/20900 by EVELINE PARADA Multivitamin (Multivitamins) 1 Each Capsule, 1 CAP PO DAILY for supplement for 30 Days, #30 Ref 0 (Reported) Entered as Reported by: RANJIT ERIC on 02/07/20 1239 Last Taken: Unknown Dose on 02/01/20 Last Action: Last Taken Edited on 02/08/20900 by EVELINE PARADA Ondansetron Hcl (Zofran) 4 Mg Tablet, 1 TAB PO PRN Q6-8HRS for nausea , #8 Prescribed by: Jackson Bass on 02/09/20 1019 Scheduled PRN Oxycodone/Apap 5-325 (Percocet 5-325 Mg Tablet ) 1 Each Tablet, 1 TAB PO PRN Q4HRS PRN for MILD PAIN, 1ST CHOICE, #30 Ref 0 Prescribed by: Jackson Bass on 02/09/20 1019 Miscellaneous Medications [vitamin D] , for supplement, (Reported) Entered as Reported by: RANJIT ERIC on 02/07/20 1239 Last Taken: unknown dose on 02/01/20 Last Action: Last Taken Edited on 02/08/20900 by EVELINE PARADA Justicifation of Admission Dx: Justifications for Admission: Justification of Admission Dx: N/A JACKSON BASS APRN Feb 13, 2020 09:52
== END 2020-02-09 14:30 | disposition home or self-care (01) ==
LOC: SURG 08:30 → 3 NORTH 13:12
PROVIDERS: ADMIT Surgery; ATTEND Surgery
DX: D05.12 Intraductal carcinoma in situ of left breast (principal)
CPT/HCPCS: 19303; 38525; 38792; 96374; 96375; 96376; A7015; A9520; G0378; G0379; J0690; J1100; J1170; J2250; J2270; J2405; J2704; J3010; Q9968

== ENCOUNTER → 2020-06-11 | Outpatient (CLI) | payer OTHER ==
[~2020-06-11] MED LIST changes: -HYDROmorphone 2 MG/ML VIAL IV PRN; -IV RINGERS,LACTATED 1000ML 1,000 ML IV SCH; -LIDOCAINE 1% PF 2 ML VIAL. ID PRN; -MORPHINE SULFATE 2 MG/ML VIAL. IV PRN; +ONDA4TAB7 PO; -PROCHLORPERAZINE 10 MG/2 ML VIAL. IV PRN; -fentaNYL PF VIAL 100 MCG/2 ML VIAL IV PRN
--- NOTE | 2020-06-11 15:51 | RAD ---
Examination: Left chest wall ultrasound INDICATION: 45-year-old woman status post left mastectomy 4 months ago presents with a lump in the le ft chest wall along her mastectomy scar. COMPARISON: Left digital diagnostic mammogram of 12/20/2019 TECHNIQUE AND FINDINGS: Ultrasound of the mid left chest along her mastectomy scar shows a large fluid collection with copywriting intern al debris measuring 5.2 x 4.5 cm in the longitudinal orientation and in the transverse orientation, a pproximately 24 cm long. The left axilla was also surveyed. IMPRESSION: Postoperative seroma although patient's mastectomy scar. No findings suspicious for local tumor recurrence. BI-RADS Category 2 Benign findings Recommend appropriate clinical management. Electronically signed by: Isaac Donis MD (06/11/2020 3:49 PM) [id number]
== END ==
LOC: US 11:07
PROVIDERS: ATTEND Otolaryngology Plastic Surgery within the Head & Neck
DX: R22.2 Localized swelling, mass and lump, trunk (principal); Z85.3 Personal history of malignant neoplasm of breast
CPT/HCPCS: 76604

== ENCOUNTER → 2020-12-03 | Outpatient (CLI) | payer OTHER ==
--- NOTE | 2020-12-03 12:23 | KCIC ---
EXAM: DUAL ENERGY X-RAY ABSORPTIOMETRY (DEXA). HISTORY: At risk medical therapy, status post ovariectomy, postmenopausal screening. FINDINGS: The lowest measured T-score is -1.0 in the lumbar spine, based on a bone mineral density of 0.936 g/cm^2. Refer to the worksheets for full detail. No comparison examinations are available. IMPRESSION: Normal. Bone mineral density yields a T-score of -1.0 or greater. Fracture risk is low. FRAX was not calculated. METHODOLOGY: Dual energy x-ray absorptiometry was performed to measure bone mineral density. The foll owing analysis is based on the 2019 Official Positions of the International Society for Clinical Dens itometry: Measurements of the hips and the average of L1-L4 are preferred. When the spine and/or hip cannot be feasibly measured or interpreted, or in the setting of hyperparathyroidism, distal radial bone minera l density may be measured. The lumbar spine T-score is based on the average bone mineral density of L1-L4. In the setting of art ifact or anatomic abnormality, some lumbar levels may be excluded, and the remaining levels used for calculation. A single lumbar level is not used for diagnosis, and if only a single level is available for assessment, another anatomic site will be used to assign a diagnosis. The hip T-score is based on the bone mineral density measurement of the femoral neck or total proxima l femur of either side, whichever is lowest. Bilateral mean values are not used for diagnosis. The forearm T-score is derived from 33% of the distal radius of the nondominant forearm. For postmenopausal and perimenopausal women, and men age 50 or older, of all ethnic groups, T-scores are calculated through comparison of the current measurement with the NHANES III database standard fo r females aged 20-29 years. The lowest T-score of the evaluated anatomic sites is used to a ssign a diagnosis based on the World Health Organization densitometric classification. In premenopausal females and males younger than age 50, a Z-score is calculated based on population s pecific reference data for patient sex and self-reported ethnicity. Electronically signed by: Elias Zavala MD (12/03/2020 12:21 PM) [id number]
== END ==
LOC: KCIC DEXA 11:10
PROVIDERS: ATTEND Internal Medicine Hematology & Oncology
DX: C50.411 Malignant neoplasm of upper-outer quadrant of right female breast (principal); Z79.811 Long term (current) use of aromatase inhibitors
CPT/HCPCS: 77080